=== PATIENT | female | born 1975 ===

== ENCOUNTER 2023-11-26 16:12 | Emergency (ER) | payer OTHER, SELFPAY ==
[2023-11-26] VITALS (9 sets, daily range): BP systolic 158–212; BP diastolic 84–117; PULSE 95–119; RESP 16–33; TEMP 36.7–37.5; O2SAT 95–100; BMI 39.0
--- NOTE | ~2023-11-26 | CT_ITS ---
EXAMINATION: CT cervical spine wo IV con, CT head/brain wo IV con INDICATION INFORMATION: AMS, possible fall? COMPARISON: None TECHNIQUE: Separate noncontrast CT examinations of the head and cervical spine were performed. Coronal and sagittal images were created for each examination at the technologist workstation. This CT examination was performed using dose optimization techniques as appropriate, variously including the following: *Automated exposure control *Adjustment of mA and/or kV according to patient size (this includes techniques or standardized protocols for targeted exams where dose is matched to indication/reason for exam; i.e. extremities or head) *Use of iterative reconstruction technique DLP: 1779 mGy-cm FINDINGS: Head: No acute osseous or soft tissue abnormality. Mild mucosal thickening of the right maxillary sinus The mastoid air cells and visualized portions of the paranasal sinuses are otherwise well aerated. There is no evidence of acute intracranial hemorrhage or territorial infarction. No abnormal mass effect or midline shift is seen. Hillman to white matter differentiation is well preserved. No extra-axial fluid collections are identified. No hydrocephalus. No significant volume loss. There is no abnormal attenuation within the brain parenchyma. Cervical spine: There is no evidence of acute cervical spine fracture. Vertebral bodies remain normal in height. Mild reversal of the usual cervical lordosis. Disc space heights are maintained. Small disc ossific complexes at C4-C5 and C5-C6. No areas of osseous spinal canal narrowing. No pre- or paravertebral soft tissue abnormality is identified. Chronic appearing fragmented osteophyte at the left T1 costovertebral junction at the tip of the T1 transverse process (Series 15, image 29). Visualized portions of the lung apices are unremarkable. Diffuse right greater than left thyroid lobe enlargement without discrete nodule. CT/CT cervical spine wo IV con IMPRESSION: 1. No acute traumatic abnormality of the brain or cervical spine. 2. Mild degenerative cervical spondylosis, most pronounced at C4-C5 and C5-C6.
--- NOTE | ~2023-11-26 | XR_ITS ---
EXAMINATION: XR CHEST CLINICAL INFORMATION: Altered mental status COMPARISON: None available. TECHNIQUE: Frontal view of the chest was obtained. FINDINGS: Low lung volumes accentuate the pulmonary interstitial markings. No focal consolidation. No pleural effusion or pneumothorax. Normal heart size and mediastinal contours within the limitations of lung volumes. XR/XR chest 1V IMPRESSION: No acute cardiopulmonary abnormality, within limitations of low lung volumes.
--- NOTE | 2023-11-26 16:16 | ED.GENADULT ---
HPI - General Adult General Chief complaint: General Medical Stated complaint: from [facility], unresponsive, possibly faking? Time Seen by Provider: 11/26/23 16:15 Source: patient, family (patient's daughter) and EMS Mode of arrival: EMS Limitations: no limitations History of Present Illness HPI narrative: Patient is a 48 year old assigned female at with a history of catatonic episodes, DM, and HTN presenting to the emergency department today after an acute catatonic episode. Patient states that she was feeling overwhelmed and lowered herself to the floor. [facility] staff states that the patient refused all medications, lowered herself to the floor, and then stopped speaking. Patient's daughter explained to me over the phone that the patient has episodes of catatonic behavior and delusions and that is why she is hospitalized in [facility]. Patient denies any dizziness, lightheadedness, abdominal pain, nausea, vomiting, fever, chills, blurry vision, double vision, loss of vision, chest pain, difficulty breathing, shortness of breath, back pain, night sweats, pain with urination, increased urinary frequency, increased urinary urgency, blood in her urine or stool, syncope or a near syncopal episode, recent trauma or falls, bowel incontinence, bladder incontinence, bowel retention, bladder retention, or any other complaints at this time. Relieving factors: none Exacerbating factors: none Associated symptoms: denies other symptoms Treatments prior to arrival: none Related Data Previous Rx's ?Medication ?Instructions ?Recorded cefuroxime axetil 250 mg tablet 250 mg PO BID 7 days #14 tabs 11/27/23 Allergies Allergy/AdvReac Type Severity Reaction Status Date / Time No Known Allergies Allergy Verified 11/26/23 16:20 Review of Systems Constitutional: Constitutional: Reports no additional constitutional complaints, Denies chills, Denies fever(s) and Denies night sweats Eyes: Eyes: Reports no additional eye complaints, Denies blurry vision, Denies change in vision, Denies diplopia, Denies eye discharge, Denies loss of vision and Denies eye pain ENT: Denies dizziness Cardiovascular: Cardiovascular: Reports no additional cardiovascular complaints, Denies chest pain, Denies lightheadedness, Denies Loss of Consciousness and Denies dyspnea Respiratory: Respiratory: Reports no additional respiratory complaints and Denies dyspnea Gastrointestinal: Gastrointestinal: Reports no additional gastrointestinal complaints, Denies abdominal pain, Denies melena, Denies hematochezia, Denies change in bowel habits and Denies change in stool character Genitourinary: Genitourinary: Denies hematuria, Denies urinary frequency, Denies dysuria, Denies urinary incontinence, Denies urinary hesitancy and Denies urinary urgency Musculoskeletal: Musculoskeletal: Reports no additional musculoskeletal complaints, Denies numbness and Denies tingling Neurologic: Denies dizziness, Denies loss of vision, Denies numbness and Denies tingling Psychiatric: Psychiatric: Reports no additional psychiatric complaints Endocrine: Endocrine: Reports no additional endocrine complaints Hematologic/Lymphatic: Hematologic/Lymphatic: Reports no additional hematologic/lymphatic complaints Allergic/Immunologic: Allergic/Immunologic: Reports no additional allergic/immunologic complaints PMFSH Past Medical History Attestation statement: The following information was validated with the patient. (patient's daughter validated all information) Source: old records reviewed, obtained from family (patient's daughter provided additional history and confirmed the history provided by the patient.) and nursing notes reviewed Social History Social History Unable to assess alcohol history related to: Refusing to respond Use of substances other than those prescribed or required for medical reasons: Refusing to respond Advance Directives: No Advance Directives Information Provided: No Physical Exam ED Vital Signs: Vital Signs - 24 hr 11/26/23 16:17 11/26/23 16:37 11/26/23 17:05 Temperature 99.5 F 99.3 F Pulse Rate 117 H 110 H Respiratory Rate 18 26 H Blood Pressure 212/117 H 212/117 H 176/97 H Pulse Oximetry 100 99 Oxygen Delivery Method Room Air 11/26/23 17:30 11/26/23 17:49 11/26/23 18:02 Temperature 99.3 F 98.0 F Pulse Rate 117 H 119 H Respiratory Rate 27 H 33 H Blood Pressure 198/93 H 212/96 H 207/93 H Pulse Oximetry 100 98 Oxygen Delivery Method Room Air Room Air 11/26/23 19:42 11/26/23 22:35 Temperature 99.5 F Pulse Rate 95 114 H Respiratory Rate 16 16 Blood Pressure 169/85 H 158/84 H Pulse Oximetry 99 95 Oxygen Delivery Method Room Air Room Air BMI result Body Mass Index 39.0 Const General: cooperative, no acute distress, alert and awake Nutritional Appearance: well nourished Orientation/consciousness: patient oriented x3 Limitations: no limitations HENMT Head: Yes normal to inspection and Yes atraumatic Ears: hearing grossly normal bilaterally and external ears normal General nose exam: Normal external nose present, no nasal discharge noted and no epistaxis Face and sinus: Yes normal facial exam, No abrasion and No laceration Mouth: Normal oral and palatal mucosa present, no drooling and no muffled voice Eyes General: appearance normal, both eyes and all related structures Periorbital: periorbital findings normal Eyelids: Yes eyelids normal Conjunctivae: conjunctivae normal Pupils: Equal, round and reactive pupils present EOM: EOMs intact bilaterally Neck Neck: Yes normal visual inspection, Yes full ROM and Yes no lymphadenopathy Chest Chest palpation & inspection: normal inspection of the chest Resp Effort & Inspection: normal respiratory effort and able to speak in complete sentences GI Inspection: Yes normal to inspection Neuro General: patient oriented x3 and moves all extremities Cranial nerves: Yes Equal, round and reactive pupils present Cognition (Neuro): normal cognition Motor exam (neuro): 5/5 motor strength present throughout Sensory Exam: Normal double simultaneous stimulation for sensation Coordination: [id number] test normal Extrem General: Yes normal to inspection, Yes full ROM and Yes capillary refill normal Psych Other: patient had intermittent episodes of refusing to respond to verbal stimuli. Appearance: grossly normal Mental Status: mental status grossly normal Affect: normal affect Attitude: cooperative Thought process: Normal thought process present Thought content: Normal thought content present Insight: Good insight present (Psych) Course Reevaluation(s) Reevaluation #1: Patient placed in physician observation on 11/26/2023 at 2130 as she received IV fluid for her elevated lactic acid. Time: 21:30 Reevaluation #2: Observation care revealed the the patient does not meet medical necessity for hospitalization. Final disposition discussed with the patient who verbalized understanding and agreement. Patient completed observation care at 0125 on 11/27/2023, total time spent in observation care was 3 hours and 55 minutes. Time: 01:25 Medications Administered Discontinued Medications Generic Name Dose Route Start Last Admin Trade Name Freq PRN Reason Stop Dose Admin Hydralazine HCl 10 mg 11/26/23 16:25 11/26/23 16:37 Hydralazine Hcl 20 Mg/Ml Vial IVPUSH 11/26/23 16:26 10 mg ONCE ONE Administration Protocol Sodium Chloride 1,000 mls @ 999 mls/hr 11/26/23 17:15 11/26/23 19:48 Ns IV 11/26/23 18:15 Infused .Q1H1M MARIAM Infusion Sodium Chloride 1,000 mls @ 999 mls/hr 11/26/23 18:45 11/26/23 20:49 Ns IV 11/26/23 19:45 Infused .Q1H1M MARIAM Infusion Sodium Chloride 1,000 mls @ 999 mls/hr 11/26/23 21:30 11/26/23 23:46 Ns IV 11/26/23 22:30 Infused .Q1H1M MARIAM Infusion Ceftriaxone Sodium 1 gm/ 50 mls @ 100 mls/hr 11/26/23 22:56 11/26/23 23:46 Sodium Chloride IV 11/26/23 23:25 Infused ONCE ONE Infusion Lorazepam 2 mg 11/26/23 16:23 11/26/23 16:37 Lorazepam 2 Mg/Ml Vial IVPUSH 11/26/23 16:24 2 mg ONCE ONE Administration Lorazepam 2 mg 11/26/23 17:40 11/26/23 17:48 Lorazepam 2 Mg/Ml Vial IVPUSH 11/26/23 17:41 2 mg ONCE ONE Administration Losartan Potassium 50 mg 11/26/23 17:40 11/26/23 17:49 Losartan Potassium 50 Mg Tablet PO 11/26/23 17:41 50 mg ONCE ONE Administration Protocol Medical Decision Making Medical Decision Making [facility] Narrative: Patient is a 48 year old assigned female at with a history of catatonic episodes, DM, and HTN presenting to the emergency department today during a catatonic episode. Patient's physical exam showed an individual with intermittent catatonic states and delusions which is chronic for the patient. Patient's blood work showed a slightly elevated WBC count of 12.1, glucose of 354, and initial lactic acid of 3.5. Patient's urine showed an acute UTI. Patient's chest x-ray, head CT, and CT C-Spine showed no acute process. Patient's clinical presentation is not consistent with sepsis (@2237). Patient's lactic acid is elevated secondary to her catatonic episodes of muscle straining. Patient was hypertensive when she initially arrived and given IV Hydralazine and PO Losartan which appropriately addressed her HTN. Patient was given IV ceftriaxone for her UTI and IV fluids. Patient's final lactic acid was 1.6. I explained my physical exam findings as well as all test results to the patient. I answered all questions asked by the patient. I stressed the importance of the patient taking her medication as prescribed. I stressed the importance of the patient following up with her primary care provider. I stressed the importance of the patient returning to the emergency department immediately if her symptoms were to worsen or if she were to develop any dizziness, shortness of breath, difficulty breathing, chest pain, blurry vision, loss of vision, nausea, vomiting, abdominal pain, fever, chills, back pain, or any other complaints. Patient verbalized agreement and understanding with this treatment plan and discharge back to [facility]. Differential Diagnosis Differential Diagnoses: The differential diagnosis associated with the presentation includes UTI Catatonic state Admission/Observation Consideration of admission/observation: Escalation of care including admission/observation considered Patient would have been admitted to the hospital had her work up had any findings where hospital admission was appropriate and her clinical presentation warranted hospital admission. Lab Data [facility] Lab Attestation statement: I reviewed the patient's lab results. My interpretation of these results are in the [facility] Rationale portion of this note. 11/26/23 16:31 11/26/23 16:31 Labs: Lab Results 11/26/23 11/26/23 11/26/23 Range/Units 16:18 16:31 21:07 WBC 12.1 H (4.8-10.8) X10*3/uL RBC 4.67 (4.20-5.50) X10*6/uL Hgb 13.1 (12.0-16.0) g/dl Hct 40.3 (37.0-47.0) % MCV 86.3 (80.0-98.0) fL MCH 28.1 (27.0-33.0) pg MCHC 32.5 (31.0-35.0) g/dl RDW 13.7 (11.0-16.0) % Plt Count 326 (160-400) X10*3/uL MPV 11.5 (9.4-12.3) fL Immature Gran % (Auto) 0.5 H (0.0-0.4) % Neut % (Auto) 72.2 (45-73) % Lymph % (Auto) 20.6 (20-40) % [place] % (Auto) 6.5 (2-11) % Eos % (Auto) 0.0 (0-4) % Baso % (Auto) 0.2 (0-2) % Lymph # (Auto) 2.5 (1.2-4.9) X10*3/uL [place] # (Auto) 0.8 (0.1-1.2) X10*3/uL Eos # (Auto) 0.0 (0.0-0.4) X10*3/uL Baso # (Auto) 0.0 (0.0-0.2) X10*3/uL Abs Immat Gran (auto) 0.06 H (0.00-0.03) X10*3/uL Absolute Neuts (auto) 8.7 H (2.0-8.3) x10*3/uL Absolute Nucleated RBC 0.000 (0.0-0.012) X10*3/uL Nucleated RBC % (auto) 0.0 (0.0-0.2) /100WBC Sodium 138 (135-145) mmol/L Potassium 4.4 (3.3-5.1) mmol/L Chloride 103 (96-108) mmol/L Carbon Dioxide 20 L (22-29) mmol/L Anion Gap 19 (12-20) BUN 14 (9-16) mg/dL Creatinine 0.91 (0.5-1.4) mg/dL Estim Creat Clear Calc 92.6 Estimated GFR > 60 POC Glucose 343 H (60-115) mg/dL Random Glucose 354 H* (60-115) mg/dL Lactic Acid 3.5 H* (0.5-2.0) mmol/L Lactic Acid F/U @ 2Hr 2.4 H* (0.5-2.0) mmol/L Lactic Acid F/U @ 4Hr (0.5-2.0) mmol/L Calcium 9.8 (8.4-10.2) mg/dL Magnesium 2.1 (1.6-2.6) mg/dL Total Bilirubin 0.3 (0.0-1.0) mg/dL AST 70 H (5-31) U/L ALT 134 H (0-31) U/L Alkaline Phosphatase 83 (39-117) U/L Total Protein 8.6 H (6.5-8.0) g/dL Albumin 4.7 (3.5-5.0) g/dL Beta-Hydroxybutyrate 0.07 (0.02-0.27) mmol/L Beta HCG, Quant < 2 mIU/mL Urine Color Urine Appearance Urine pH (5.0-9.0) Ur Specific [place] (1.005-1.025) Urine Protein (Neg-Trace) mg/dL Urine Glucose (UA) (Negative) mg/dL Urine Ketones (Negative) mg/dL Urine Blood (Negative) Urine Nitrite (Negative) Ur Leukocyte Esterase (Negative) Urine RBC (0-2) /HPF Urine WBC (0-5) /HPF Ur Squamous Epith Cells (0-2) /HPF Urine Bacteria (None Seen) Hyaline Casts (0-2) /LPF Influenza Type A (PCR) NEGATIVE (Negative) Influenza Type B (PCR) NEGATIVE (Negative) RSV RNA Qual (PCR) NEGATIVE (Negative) SARS-CoV-2 RNA (RT-PCR) NEGATIVE (Negative) 11/26/23 11/27/23 Range/Units 22:37 00:23 WBC (4.8-10.8) X10*3/uL RBC (4.20-5.50) X10*6/uL Hgb (12.0-16.0) g/dl Hct (37.0-47.0) % MCV (80.0-98.0) fL MCH (27.0-33.0) pg MCHC (31.0-35.0) g/dl RDW (11.0-16.0) % Plt Count (160-400) X10*3/uL MPV (9.4-12.3) fL Immature Gran % (Auto) (0.0-0.4) % Neut % (Auto) (45-73) % Lymph % (Auto) (20-40) % [place] % (Auto) (2-11) % Eos % (Auto) (0-4) % Baso % (Auto) (0-2) % Lymph # (Auto) (1.2-4.9) X10*3/uL [place] # (Auto) (0.1-1.2) X10*3/uL Eos # (Auto) (0.0-0.4) X10*3/uL Baso # (Auto) (0.0-0.2) X10*3/uL Abs Immat Gran (auto) (0.00-0.03) X10*3/uL Absolute Neuts (auto) (2.0-8.3) x10*3/uL Absolute Nucleated RBC (0.0-0.012) X10*3/uL Nucleated RBC % (auto) (0.0-0.2) /100WBC Sodium (135-145) mmol/L Potassium (3.3-5.1) mmol/L Chloride (96-108) mmol/L Carbon Dioxide (22-29) mmol/L Anion Gap (12-20) BUN (9-16) mg/dL Creatinine (0.5-1.4) mg/dL Estim Creat Clear Calc Estimated GFR POC Glucose (60-115) mg/dL Random Glucose (60-115) mg/dL Lactic Acid (0.5-2.0) mmol/L Lactic Acid F/U @ 2Hr (0.5-2.0) mmol/L Lactic Acid F/U @ 4Hr 1.6 (0.5-2.0) mmol/L Calcium (8.4-10.2) mg/dL Magnesium (1.6-2.6) mg/dL Total Bilirubin (0.0-1.0) mg/dL AST (5-31) U/L ALT (0-31) U/L Alkaline Phosphatase (39-117) U/L Total Protein (6.5-8.0) g/dL Albumin (3.5-5.0) g/dL Beta-Hydroxybutyrate (0.02-0.27) mmol/L Beta HCG, Quant mIU/mL Urine Color Red A Urine Appearance Hazy Urine pH 7.0 (5.0-9.0) Ur Specific [place] 1.025 (1.005-1.025) Urine Protein 100 (2+) H (Neg-Trace) mg/dL Urine Glucose (UA) >=1000 H (Negative) mg/dL Urine Ketones Negative (Negative) mg/dL Urine Blood Large (3+) H (Negative) Urine Nitrite Negative (Negative) Ur Leukocyte Esterase Moderate (2+) H (Negative) Urine RBC >20 H (0-2) /HPF Urine WBC 21-50 H (0-5) /HPF Ur Squamous Epith Cells 3-5 (0-2) /HPF Urine Bacteria 1+ (None Seen) Hyaline Casts 0-2 (0-2) /LPF Influenza Type A (PCR) (Negative) Influenza Type B (PCR) (Negative) RSV RNA Qual (PCR) (Negative) SARS-CoV-2 RNA (RT-PCR) (Negative) Independent Interpretation I performed an independent interpretation of an: Plain X-Ray and CT Scan Interpretation: My interpretation is in agreement with the radiologist's impression of these imaging studies. EXAMINATION: XR CHEST CLINICAL INFORMATION: Altered mental status COMPARISON: None available. TECHNIQUE: Frontal view of the chest was obtained. FINDINGS: Low lung volumes accentuate the pulmonary interstitial markings. No focal consolidation. No pleural effusion or pneumothorax. Normal heart size and mediastinal contours within the limitations of lung volumes. XR/XR chest 1V IMPRESSION: No acute cardiopulmonary abnormality, within limitations of low lung volumes. Dictated By: Young Soliman MD Signed By: Electronically signed by Young Soliman MD 11/26/23 1928 EXAMINATION: CT cervical spine wo IV con, CT head/brain wo IV con INDICATION INFORMATION: AMS, possible fall? COMPARISON: None TECHNIQUE: Separate noncontrast CT examinations of the head and cervical spine were performed. Coronal and sagittal images were created for each examination at the technologist workstation. This CT examination was performed using dose optimization techniques as appropriate, variously including the following: *Automated exposure control *Adjustment of mA and/or kV according to patient size (this includes techniques or standardized protocols for targeted exams where dose is matched to indication/reason for exam; i.e. extremities or head) *Use of iterative reconstruction technique DLP: 1779 mGy-cm FINDINGS: Head: No acute osseous or soft tissue abnormality. Mild mucosal thickening of the right maxillary sinus The mastoid air cells and visualized portions of the paranasal sinuses are otherwise well aerated. There is no evidence of acute intracranial hemorrhage or territorial infarction. No abnormal mass effect or midline shift is seen. Hillman to white matter differentiation is well preserved. No extra-axial fluid collections are identified. No hydrocephalus. No significant volume loss. There is no abnormal attenuation within the brain parenchyma. Cervical spine: There is no evidence of acute cervical spine fracture. Vertebral bodies remain normal in height. Mild reversal of the usual cervical lordosis. Disc space heights are maintained. Small disc ossific complexes at C4-C5 and C5-C6. No areas of osseous spinal canal narrowing. No pre- or paravertebral soft tissue abnormality is identified. Chronic appearing fragmented osteophyte at the left T1 costovertebral junction at the tip of the T1 transverse process (Series 15, image 29). Visualized portions of the lung apices are unremarkable. Diffuse right greater than left thyroid lobe enlargement without discrete nodule. CT/CT head/brain wo IV con IMPRESSION: 1. No acute traumatic abnormality of the brain or cervical spine. 2. Mild degenerative cervical spondylosis, most pronounced at C4-C5 and C5-C6. Dictated By: Young Soliman MD Signed By: Electronically signed by Young Soliman MD 11/26/23 6032 Radiology Impression Discussion of test interpretation with radiology: I have reviewed the radiologist's reading. Independent Historian Clinical information obtained from an independent historian. History obtained from or confirmed by: EMS (EMS provided additional history and confirmed the history provided by the patient.) and Other (patient's daughter provided additional history and confirmed the history provided by the patient and [facility] staff.) Prescription Management I considered prescription management with: Antibiotic (patient prescribed an antibiotic for her UTI) Chronic Conditions Patient?s care impacted by: Diabetes and Hypertension Critical Care Time Critical Care Time Critical Care Time: Yes Total Critical Care Time: 146 Attestation: I spent 146 minutes of Critical Care Time with this patient. This does not include time spent on separately reported billable procedures. Discharge Plan Discharge Clinical Impression: Catatonic reaction, UTI (urinary tract infection) Patient Disposition: Xfer Other Transfer Details: [facility] Instructions: Urinary Tract Infection in Women (DC), Mood Disorders (ED) Additional Instructions: Follow up with your primary care provider. Return to the emergency department immediately if your symptoms worsen or if you develop any dizziness, shortness of breath, difficulty breathing, chest pain, blurry vision, loss of vision, nausea, vomiting, abdominal pain, fever, chills, back pain, or any other complaints. Prescriptions: New cefuroxime axetil 250 mg tablet 250 mg PO BID 7 Days Qty: 14 0RF Ref[place]: [facility] [facility] [place]] (Call to establish and follow up with a primary care provider. If you already have a primary care provider, please follow up with them.) [facility] [facility] [place] Group] [facility] [facility] [place]Provider Group] Print Language: Kiswahili
[2023-11-26 16:21] LABS: Glucose, Whole Blood 343 mg/dL (60-115)
[2023-11-26] MEDS: LORazepam 2 MG/ML VIAL IVPUSH ×2 (16:37→17:48)
[2023-11-26] MEDS: hydrALAZINE HCl 20 MG/ML VIAL 10 MG IVPUSH (16:37)
[2023-11-26 16:41] LABS: MANUAL DIFF FLAG NO
[2023-11-26 16:48] LABS: Basophils Percent Auto 0.2 % (0-2); Hematocrit 40.3 % (37.0-47.0); Hemoglobin 13.1 g/dl (12.0-16.0); Imm Gran Abs Auto 0.06 X10*3/uL (0.00-0.03); Imm Gran Pct Auto 0.5 % (0.0-0.4); Lymphocytes Absolute Auto 2.5 X10*3/uL (1.2-4.9); Lymphocytes Percent Auto 20.6 % (20-40); Mean Corpuscular HGB Conc 32.5 g/dl (31.0-35.0); Mean Corpuscular Hemoglobin 28.1 pg (27.0-33.0); Mean Corpuscular Volume 86.3 fL (80.0-98.0); Mean Platelet Volume 11.5 fL (9.4-12.3); Monocytes Absolute Auto 0.8 X10*3/uL (0.1-1.2); Monocytes Percent Auto 6.5 % (2-11); Neutrophils Absolute Auto 8.7 x10*3/uL (2.0-8.3); Neutrophils Percent Auto 72.2 % (45-73); Platelet Count 326 X10*3/uL (160-400); Red Blood Count 4.67 X10*6/uL (4.20-5.50); Red Cell Distribution Width 13.7 % (11.0-16.0); White Blood Count 12.1 X10*3/uL (4.8-10.8)
[2023-11-26 17:11] LABS: Lactic Acid 3.5 mmol/L (0.5-2.0)
[2023-11-26 17:22] LABS: Alanine Aminotransferase 134 U/L (0-31); Albumin Level 4.7 g/dL (3.5-5.0); Alkaline Phosphatase 83 U/L (39-117); Anion Gap 19 (12-20); Aspartate Amino Transferase 70 U/L (5-31); Bilirubin Total 0.3 mg/dL (0.0-1.0); Blood Urea Nitrogen 14 mg/dL (9-16); Calcium 9.8 mg/dL (8.4-10.2); Carbon Dioxide 20 mmol/L (22-29); Chloride 103 mmol/L (96-108); Creatinine Clr Calc Pharmacy 92.6; Estimated Glomerular Filt Rate > 60; Glucose Random 354 mg/dL (60-115); HCG Quantitative < 2 mIU/mL; Magnesium 2.1 mg/dL (1.6-2.6); Potassium 4.4 mmol/L (3.3-5.1); Sodium 138 mmol/L (135-145); Total Protein 8.6 g/dL (6.5-8.0)
[2023-11-26 17:28] LABS: Influenza A PCR NEGATIVE (Negative); Influenza B PCR NEGATIVE (Negative); Resp Syncy Virus RNA Qual PCR NEGATIVE (Negative); SARS COV2 PCR INHOUSE NEGATIVE (Negative)
[2023-11-26] MEDS: 0.9 % Sodium Chloride 1,000 ML 999 ML IV ×3 (17:28→21:32)
[2023-11-26] MEDS: Losartan Potassium 50 MG TABLET PO (17:49)
--- NOTE | 2023-11-26 17:53 | PC.NURSE ---
Spoke with fozia from [facility] stated that patient arrived to them in a catatonic state and they do not have any contact info other than that she came from [facility]
[2023-11-26 18:25] LABS: Beta-Hydroxybutyrate 0.07 mmol/L (0.02-0.27)
[2023-11-26 18:39] LABS: Reflex Lactate? Lactic Acid Added
--- NOTE | 2023-11-26 19:49 | PC.NURSE ---
Assumed care of pt. Per provider, plan to reevaluate lactic acid p IVF, with possible DC back to [facility]. Contacted GIANLUCA, RN Support Teacher Nicolasa, to notify that pt prevoiusly requestetd to have her gregoria added to contact list. Also notified of possible plan of care.
--- NOTE | 2023-11-26 19:52 | PC.NURSE ---
Nicolasa/Alannah [phone], [facility]
[2023-11-26 21:28] LABS: ~Lactic Acid-LAB USE ONLY 2.4 mmol/L (0.5-2.0)
[2023-11-26 22:47] LABS: Appearance Urine Hazy; Color Urine Red; Glucose Urine UA >=1000 mg/dL (Negative); Leukocyte Esterase Urine Moderate (2+) (Negative); Nitrite Urine Negative (Negative); Specific Gravity - Urine 1.025 (1.005-1.025); UMIC TRIGGER UACC YES; Urine Blood Large (3+) (Negative); Urine Ketones Negative (Negative); Urine Protein 100 (2+) mg/dL (Neg-Trace)
[2023-11-26 22:51] LABS: Bacteria Urine 1+ (None Seen); Hyaline Casts Urine 0-2 /LPF (0-2); RBC Urine >20 /HPF (0-2); UACC Culture Trigger YES; WBC Urine 21-50 /HPF (0-5)
[2023-11-26 23:11] LABS: Reflex Lactate? 2 Y
[2023-11-26] MEDS: cefTRIAXone sodium 1 GM in 0.9 % Sodium Chloride 50 ML IV (23:11)
[2023-11-27 00:38] LABS: ~Lactic Acid-LAB USE ONLY 1.6 mmol/L (0.5-2.0)
[2023-11-27 01:31] VITALS: BP 160/82; PULSE 105; RESP 16; TEMP 37.2; O2SAT 96
== END 2023-11-27 01:32 | disposition home or self-care (01) ==
PROVIDERS: Physician Assistant Medical; Emergency Provider Emergency Medicine Emergency Medical Services
DX: N39.0 Urinary tract infection, site not specified (principal); F06.1 Catatonic disorder due to known physiological condition; F22 Delusional disorders; R41.82 Altered mental status, unspecified; E11.9 Type 2 diabetes mellitus without complications; I10 Essential (primary) hypertension; Z03.818 Encounter for observation for suspected exposure to other biological agents ruled out
CPT/HCPCS: 0241U; 36415; 70450; 71045; 72125; 80053; 81001; 82010; 82947; 83605; 83735; 84702; 85025; 87040; 87086; 87147; 96361; 96365; 96366; 96375; 96376; 99285; J0360; J0696; J2060